=== PATIENT | male | born 1955 | race Caucasian/White ===

== ENCOUNTER 2020-09-04 09:19 | Inpatient (IN) ==
[2020-09-04] MEDS ORDERED: 0.9 % Sodium Chloride 1,000 ML IVC ONE ×2 (09:50→10:00)
[2020-09-04 10:26] LABS: Hematocrit 46.4 % (37.5-50.1); Hemoglobin 15.9 g/dL (12.9-16.9); Immature Platelets 3.2 % (1.1-6.1); Mean Corpuscular HGB Conc 34.3 g/dL (31.6-35.5); Mean Corpuscular Hemoglobin 37.1 pg (28.0-33.3); Mean Corpuscular Volume 108.2 fL (83.0-100.0); Mean Platelet Volume 9.4 fL (9.4-12.4); Platelet Count 122 K/mcL (140-400); Red Blood Count 4.29 M/mcL (4.19-5.50); Red Cell Distribution Width 13.2 % (11.5-14.5)
[2020-09-04 10:36] LABS: INR 1.2; Prothrombin Time 13.8 Seconds (9.4-12.1)
[2020-09-04] MEDS ORDERED: 0.9 % Sodium Chloride 500 ML IVC ONE ×2 (10:44→16:22)
[2020-09-04 10:48] LABS: Bacteria,Urine Few per hpf (None-Few); Bilirubin,Urine Negative (Negative); Blood,Urine Negative (Negative); Clarity,Urine Turbid (Clear); Color,Urine Yellow (Yellow); Glucose,Urine (UA) Normal (Normal); Ketones,Urine Negative (Negative); Leukocyte Esterase,Urine Moderate (Negative); Mucus,Urine Few per lpf (None-Few); Nitrite,Urine Positive (Negative); Protein,Urine Trace mg/dL (Neg-Trace); RBC,Urine 0-3 per hpf (0-3); Specific Gravity,Urine 1.015 (1.010-1.025); Squamous Epithelial Cell,Urine Few per hpf (None-Few)
[2020-09-04 10:55] LABS: Alanine Aminotransferase 23 Units/L (7-52); Albumin/Globulin Ratio 1.3 (1.1-2.2); Alkaline Phosphatase 77 Units/L (34-104); Aspartate Amino Transferase 28 Units/L (13-39); BUN/Creatinine Ratio 9 (6-26); Bilirubin,Direct 0.5 mg/dL (0.0-0.2); Bilirubin,Total 1.5 mg/dL (0.3-1.0); Blood Urea Nitrogen 9 mg/dL (8-23); Calcium 9.3 mg/dL (8.6-10.3); Carbon Dioxide 26 mEq/L (23-29); Chloride 101 mEq/L (98-107); Ethanol < 10 mg/dL (Less than 10); Glucose 92 mg/dL (70-105); Lipase 24 Units/L (11-82); Osmolality,Calculated 282 (280-300); Potassium 3.8 mEq/L (3.5-5.1); Sodium 137 mEq/L (136-145); Troponin I 0.03 ng/mL (< 0.04); eGFR For African Americans > 60 (> 60); eGFR For Non-African Americans > 60 (> 60)
[2020-09-04 11:39] LABS: Basophils # 0.1 K/mcL (0.0-0.2); Lymphocytes # 0.4 K/mcL (0.6-4.6); Monocytes # 0.2 K/mcL (0.0-1.3); Neutrophils # 3.4 K/mcL (1.6-8.9); Platelet Estimate Slight Decrease (Normal)
[2020-09-04] MEDS ORDERED: Piperacillin/Tazobactam 3.375 GM in 0.9 % Sodium Chloride Mini Bag 100 ML IVPB ONE (11:59)
[2020-09-04] MEDS ORDERED: Vancomycin 1,500 MG/265 ML IV.SOLN IVPB ONE (12:02)
[2020-09-04] MEDS ORDERED: Naloxone 0.4 MG/ML INJ IVP PRN (12:07)
[2020-09-04] MEDS ORDERED: *HR* LORazepam 2 MG/ML VIAL IVP PRN ×3 (12:08)
[2020-09-04] MEDS ORDERED: 0.9 % Sodium Chloride 1,000 ML IVC SCH (12:15)
[2020-09-04 12:53] LABS: Adenovirus Not Detected (Not Detect); Bordetella Pertussis Not Detected (Not Detect); Chlamydophila pneumoniae Not Detected (Not Detect); Coronavirus 229E Not Detected (Not Detect); Coronavirus HKU1 Not Detected (Not Detect); Coronavirus NL63 Not Detected (Not Detect); Coronavirus OC43 Not Detected (Not Detect); Human Metapneumovirus Not Detected (Not Detect); Human Rhinovirus/Enterovirus Not Detected (Not Detect); Influenza A Subtype 2009 H1 Not Detected (Not Detect); Influenza B Not Detected (Not Detect); Mycoplasma pneumoniae Not Detected (Not Detect); Parainfluenza Virus 1 Not Detected (Not Detect); Parainfluenza Virus 2 Not Detected (Not Detect); Parainfluenza Virus 3 Not Detected (Not Detect); Parainfluenza Virus 4 Not Detected (Not Detect); Respiratory Syncytial Virus Not Detected (Not Detect); SARS-CoV-2 Not Detected (Not Detect)
[2020-09-04] MEDS ORDERED: Perflutren Lipid Microsphere 1.3 ML in 0.9 % Sodium Chloride 8.7 ML IVP PRN (13:11)
[2020-09-04] MEDS: Folic Acid 1 MG TABLET PO SCH (13:23)
[2020-09-04] MEDS: Thiamine (B-1) 100 MG TABLET PO SCH (13:23)
[2020-09-04 13:37] LABS: Amphetamine Screen,Urine Negative ng/mL (Cutoff=1000); Barbiturate Screen,Urine Negative ng/mL (Cutoff=200); Benzodiazepines Screen,Urine Negative ng/mL (Cutoff=200); Cannabinoid Screen,Urine Negative ng/mL (Cutoff = 50); Cocaine Screen,Urine Negative ng/mL (Cutoff= 300); Opiate Screen,Urine Negative ng/mL (Cutoff=300); Phencyclidine Screen,Urine Negative ng/mL (Cutoff=25)
[2020-09-04] MEDS: Aspirin 81 MG TAB.CHEW PO SCH (13:50)
[2020-09-04 14:14] LABS: Estimated Average Glucose 105 mg/dl; Hemoglobin A1C 5.3 %
[2020-09-04] MEDS: *HR* Heparin 5,000 UNIT/ML VIAL SQ SCH (18:10)
[2020-09-04] MEDS: 0.9 % Sodium Chloride 1,000 ML IVC SCH (18:17)
[2020-09-04] MEDS: Piperacillin/Tazobactam 3.375 GM in 0.9 % Sodium Chloride Mini Bag 100 ML IVPB SCH (21:55)
[2020-09-05 03:54] LABS: Immature Granulocytes % 0.3 % (0-4)
[2020-09-05 03:56] LABS: Basophils % 0.4 %; Eosinophils # 0.1 K/mcL (0.0-0.6); Hematocrit 38.6 % (37.5-50.1); Hemoglobin 12.9 g/dL (12.9-16.9); Immature Platelets 3.5 % (1.1-6.1); Lymphocytes # 1.1 K/mcL (0.6-4.6); Lymphocytes % 15.9 %; Mean Corpuscular HGB Conc 33.4 g/dL (31.6-35.5); Mean Corpuscular Hemoglobin 37.1 pg (28.0-33.3); Mean Corpuscular Volume 110.9 fL (83.0-100.0); Mean Platelet Volume 10.1 fL (9.4-12.4); Monocytes # 0.8 K/mcL (0.0-1.3); Monocytes % 11.5 %; Neutrophils # 4.8 K/mcL (1.6-8.9); Red Blood Count 3.48 M/mcL (4.19-5.50); Red Cell Distribution Width 13.5 % (11.5-14.5); Segmented Neutrophils % 70.9 %; White Blood Count 6.8 K/mcL (4.3-11.1)
[2020-09-05 04:10] LABS: Platelet Count 97 K/mcL (140-400)
[2020-09-05] MEDS: Piperacillin/Tazobactam 3.375 GM in 0.9 % Sodium Chloride Mini Bag 100 ML IVPB SCH ×3 (04:17→20:24)
[2020-09-05] MEDS: *HR* Heparin 5,000 UNIT/ML VIAL SQ SCH ×2 (04:18→17:52)
[2020-09-05 04:19] LABS: % Iron Saturation 34 % (20-55); Alanine Aminotransferase 20 Units/L (7-52); Albumin 3.1 g/dL (3.5-5.7); Albumin/Globulin Ratio 1.3 (1.1-2.2); Alkaline Phosphatase 43 Units/L (34-104); Aspartate Amino Transferase 25 Units/L (13-39); BUN/Creatinine Ratio 13 (6-26); Bilirubin,Total 1.1 mg/dL (0.3-1.0); Blood Urea Nitrogen 11 mg/dL (8-23); Calcium 7.8 mg/dL (8.6-10.3); Carbon Dioxide 22 mEq/L (23-29); Chloride 108 mEq/L (98-107); Chol/HDL Ratio 2.1 (0-4.9); Cholesterol 101 mg/dL (< 200); Globulin 2.3 g/dL (2.4-3.5); Glucose 93 mg/dL (70-105); HDL Cholesterol 48 mg/dL (40-59); Iron 87 mcg/dL (65-175); LDL Cholesterol,Calculated 43 mg/dL (< 100); Osmolality,Calculated 283 (280-300); Potassium 3.8 mEq/L (3.5-5.1); Sodium 137 mEq/L (136-145); Total Protein 5.4 g/dL (6.4-8.9); Transferrin 181 mg/dL (203-362); Triglycerides 52 mg/dL (< 150); eGFR For African Americans > 60 (> 60); eGFR For Non-African Americans > 60 (> 60)
[2020-09-05 04:28] LABS: Thyroid Stimulating Hormone 1.128 mcIU/mL (0.340-5.600)
[2020-09-05 04:31] LABS: Platelet Estimate Slight Decrease (Normal)
[2020-09-05 04:32] LABS: Macrocytosis Present (Not Present); Reactive Lymphocytes Present (Not Present)
[2020-09-05 04:34] LABS: Ferritin 577 ng/mL (20-250)
[2020-09-05 04:38] LABS: Folate 5.9 ng/mL (3.0-16.0)
[2020-09-05] MEDS ORDERED: Isovue-370 500 ML BOTTLE IVP ONE (07:52)
[2020-09-05] MEDS: Folic Acid 1 MG TABLET PO SCH (09:12)
[2020-09-05] MEDS: Thiamine (B-1) 100 MG TABLET PO SCH (09:12)
[2020-09-05] MEDS: Aspirin 81 MG TAB.CHEW PO SCH (09:12)
[2020-09-05] MEDS: 0.9 % Sodium Chloride 1,000 ML IVC SCH (11:42)
[2020-09-05] MEDS ORDERED: Gadolinium Contrast Agent (WT Based) IV PRN (15:26)
[2020-09-05] MEDS ORDERED: Cyanocobalamin (B-12) 1,000 MCG/ML VIAL IM ONE (16:37)
[2020-09-05] MEDS ORDERED: Gabapentin 300 MG CAPSULE PO SCH (21:00)
[2020-09-06] MEDS: Piperacillin/Tazobactam 3.375 GM in 0.9 % Sodium Chloride Mini Bag 100 ML IVPB SCH (04:17)
[2020-09-06] MEDS: *HR* Heparin 5,000 UNIT/ML VIAL SQ SCH (05:10)
[2020-09-06] MEDS: Aspirin 81 MG TAB.CHEW PO SCH (07:27)
[2020-09-06] MEDS: Folic Acid 1 MG TABLET PO SCH (07:27)
[2020-09-06] MEDS: Thiamine (B-1) 100 MG TABLET PO SCH (07:27)
[2020-09-06 10:30] VITALS: BP 116/67
== END 2020-09-06 12:02 | disposition home or self-care (01) | DRG 872 ==
LOC: 3ANU 09:19 → EMEROOARM 09:19 → SUATTDRO 11:45 → 3ANU 12:45
PROVIDERS: ADMIT Student in an Organized Health Care Education/Training Program; ATTEND Internal Medicine

== ENCOUNTER 2020-10-19 11:19 | Inpatient (IN) ==
[2020-10-19 12:01] LABS: Hemoglobin 16.4 g/dL (12.9-16.9); Mean Corpuscular Hemoglobin 36.4 pg (28.0-33.3); Red Blood Count 4.51 M/mcL (4.19-5.50); Red Cell Distribution Width 11.9 % (11.5-14.5)
[2020-10-19 12:03] LABS: Basophils # 0.1 K/mcL (0.0-0.2); Basophils % 1.1 %; Eosinophils % 0.5 %; Hematocrit 47.1 % (37.5-50.1); Immature Granulocytes % 0.4 % (0-4); Immature Platelets 4.6 % (1.1-6.1); Lymphocytes # 1.5 K/mcL (0.6-4.6); Lymphocytes % 26.5 %; Mean Corpuscular HGB Conc 34.8 g/dL (31.6-35.5); Mean Corpuscular Volume 104.4 fL (83.0-100.0); Mean Platelet Volume 9.7 fL (9.4-12.4); Monocytes # 0.6 K/mcL (0.0-1.3); Monocytes % 10.9 %; Neutrophils # 3.5 K/mcL (1.6-8.9); Platelet Count 131 K/mcL (140-400); Segmented Neutrophils % 60.6 %; White Blood Count 5.7 K/mcL (4.3-11.1)
[2020-10-19 12:16] LABS: INR 1.1; Prothrombin Time 12.8 Seconds (9.4-12.1)
[2020-10-19 12:18] LABS: Activated Partial Thrombo Time 28.4 Seconds (26.0-36.0)
[2020-10-19] MEDS: DilTIAZem 50 MG/50 ML IV.SOLN IVC SCH (12:19)
[2020-10-19 12:23] LABS: Alanine Aminotransferase 18 Units/L (7-52); Albumin 4.2 g/dL (3.5-5.7); Albumin/Globulin Ratio 1.3 (1.1-2.2); Alkaline Phosphatase 67 Units/L (34-104); Aspartate Amino Transferase 23 Units/L (13-39); BUN/Creatinine Ratio 10 (6-26); Bilirubin,Direct 0.2 mg/dL (0.0-0.2); Bilirubin,Indirect 0.8 mg/dL (0.0-1.0); Blood Urea Nitrogen 9 mg/dL (8-23); Calcium 9.4 mg/dL (8.6-10.3); Carbon Dioxide 27 mEq/L (23-29); Chloride 101 mEq/L (98-107); Globulin 3.2 g/dL (2.4-3.5); Glucose 116 mg/dL (70-105); Osmolality,Calculated 288 (280-300); Potassium 4.1 mEq/L (3.5-5.1); Sodium 139 mEq/L (136-145); Total Protein 7.4 g/dL (6.4-8.9); Troponin I < 0.03 ng/mL (< 0.04); eGFR For African Americans > 60 (> 60); eGFR For Non-African Americans > 60 (> 60)
[2020-10-19] MEDS ORDERED: Naloxone 0.4 MG/ML INJ IVP PRN (16:26)
[2020-10-19] MEDS ORDERED: Ondansetron 4 MG/2 ML VIAL IVP PRN (16:42)
[2020-10-19] MEDS ORDERED: Perflutren Lipid Microsphere 1.3 ML in 0.9 % Sodium Chloride 8.7 ML IVP PRN (16:49)
[2020-10-19] MEDS: Metoprolol XL (24 HR) Succ 50 MG TAB.ER.24H PO SCH (17:27)
[2020-10-19] MEDS ORDERED: *HR* LORazepam 2 MG/ML VIAL IVP PRN ×2 (17:33)
[2020-10-19] MEDS ORDERED: Gadolinium Contrast Agent (WT Based) IV PRN (17:36)
[2020-10-19] MEDS: *HR* Heparin 5,000 UNIT/ML VIAL SQ SCH (18:03)
[2020-10-19 18:24] LABS: Troponin I < 0.03 ng/mL (< 0.04)
[2020-10-19 18:37] LABS: Thyroid Stimulating Hormone 0.425 mcIU/mL (0.340-5.600)
[2020-10-20] MEDS: *HR* Heparin 5,000 UNIT/ML VIAL SQ SCH (04:51)
[2020-10-20] MEDS ORDERED: Regadenoson 0.4 MG/5 ML SYRINGE IVP ONE (06:23)
[2020-10-20 07:05] LABS: Basophils % 0.9 %; Eosinophils # 0.1 K/mcL (0.0-0.6); Eosinophils % 2.9 %; Hematocrit 44.3 % (37.5-50.1); Hemoglobin 15.3 g/dL (12.9-16.9); Lymphocytes # 1.8 K/mcL (0.6-4.6); Lymphocytes % 39.5 %; Mean Corpuscular HGB Conc 34.5 g/dL (31.6-35.5); Mean Corpuscular Hemoglobin 36.5 pg (28.0-33.3); Mean Corpuscular Volume 105.7 fL (83.0-100.0); Mean Platelet Volume 10.1 fL (9.4-12.4); Monocytes # 0.5 K/mcL (0.0-1.3); Monocytes % 11.8 %; Neutrophils # 2.1 K/mcL (1.6-8.9); Platelet Count 104 K/mcL (140-400); Red Blood Count 4.19 M/mcL (4.19-5.50); Red Cell Distribution Width 11.7 % (11.5-14.5); Segmented Neutrophils % 44.9 %; White Blood Count 4.6 K/mcL (4.3-11.1)
[2020-10-20 07:21] LABS: BUN/Creatinine Ratio 12 (6-26); Blood Urea Nitrogen 11 mg/dL (8-23); Calcium 8.9 mg/dL (8.6-10.3); Carbon Dioxide 26 mEq/L (23-29); Chloride 102 mEq/L (98-107); Glucose 104 mg/dL (70-105); Osmolality,Calculated 284 (280-300); Phosphorous 3.4 mg/dL (2.7-4.5); Potassium 3.9 mEq/L (3.5-5.1); Sodium 137 mEq/L (136-145); eGFR For African Americans > 60 (> 60); eGFR For Non-African Americans > 60 (> 60)
[2020-10-20] MEDS: Thiamine (B-1) 100 MG TABLET PO SCH (09:14)
[2020-10-20] MEDS: Metoprolol XL (24 HR) Succ 50 MG TAB.ER.24H PO SCH ×2 (09:14→20:15)
[2020-10-20] MEDS: Vitamin B Complex/Vit C/Vit E 1 EACH TABLET PO SCH (09:14)
[2020-10-20] MEDS: Folic Acid 1 MG TABLET PO SCH (09:14)
[2020-10-20] MEDS: Aspirin 81 MG TAB.CHEW PO SCH (09:14)
[2020-10-20] MEDS: DilTIAZem 50 MG/50 ML IV.SOLN IVC SCH (10:41)
[2020-10-20] MEDS ORDERED: *HR* LORazepam 2 MG/ML VIAL IVP ONE (12:59)
[2020-10-20] MEDS ORDERED: *HR* Heparin 5,000 UNIT/ML VIAL IVP PRN ×2 (13:01)
[2020-10-20] MEDS ORDERED: *HR* Heparin 5,000 UNIT/ML VIAL IVP ONE (13:01)
[2020-10-20] MEDS: lisinopriL 5 MG TABLET PO SCH (14:24)
[2020-10-20] MEDS: Heparin 25,000UNIT/250ML 1/2NS 25,000 UNIT/250 ML IV.SOLN IVC SCH (14:25)
[2020-10-20 14:32] LABS: Mean Corpuscular Volume 105.6 fL (83.0-100.0); White Blood Count 4.3 K/mcL (4.3-11.1)
[2020-10-20 14:34] LABS: Hematocrit 46.8 % (37.5-50.1); Hemoglobin 16.2 g/dL (12.9-16.9); Immature Platelets 3.9 % (1.1-6.1); Mean Corpuscular HGB Conc 34.6 g/dL (31.6-35.5); Mean Corpuscular Hemoglobin 36.6 pg (28.0-33.3); Mean Platelet Volume 9.7 fL (9.4-12.4); Red Blood Count 4.43 M/mcL (4.19-5.50); Red Cell Distribution Width 11.9 % (11.5-14.5)
[2020-10-20 16:01] LABS: Heparin anti-factor XA UFH < 0.04 IU/mL (0.30-0.70)
[2020-10-20 16:02] LABS: INR 1.1; Prothrombin Time 12.8 Seconds (9.4-12.1)
[2020-10-20] MEDS: *HR* LORazepam 2 MG/ML VIAL IVP PRN (23:25)
[2020-10-21 06:07] LABS: Hematocrit 42.1 % (37.5-50.1); Hemoglobin 14.5 g/dL (12.9-16.9); Immature Platelets 3.6 % (1.1-6.1); Mean Corpuscular HGB Conc 34.4 g/dL (31.6-35.5); Mean Corpuscular Hemoglobin 36.2 pg (28.0-33.3); Red Blood Count 4.01 M/mcL (4.19-5.50); Red Cell Distribution Width 11.6 % (11.5-14.5); White Blood Count 4.2 K/mcL (4.3-11.1)
[2020-10-21] MEDS: Metoprolol XL (24 HR) Succ 50 MG TAB.ER.24H PO SCH ×3 (08:31→20:06)
[2020-10-21] MEDS: lisinopriL 5 MG TABLET PO SCH (08:40)
[2020-10-21] MEDS: Aspirin 81 MG TAB.CHEW PO SCH (08:45)
[2020-10-21] MEDS: Thiamine (B-1) 100 MG TABLET PO SCH (08:45)
[2020-10-21] MEDS: Vitamin B Complex/Vit C/Vit E 1 EACH TABLET PO SCH (08:45)
[2020-10-21] MEDS: Folic Acid 1 MG TABLET PO SCH (08:45)
[2020-10-21] MEDS ORDERED: Spironolactone 25 MG TABLET PO SCH (10:00)
[2020-10-21] MEDS: *HR* LORazepam 2 MG/ML VIAL IVP PRN (10:45)
[2020-10-21] MEDS: Nicotine 21 MG PATCH.TD24 TD SCH (11:05)
[2020-10-21] MEDS: Heparin 25,000UNIT/250ML 1/2NS 25,000 UNIT/250 ML IV.SOLN IVC SCH (15:51)
[2020-10-21 18:59] LABS: Bacteria,Urine Few per hpf (None-Few); Bilirubin,Urine Negative (Negative); Blood,Urine Negative (Negative); Clarity,Urine Turbid (Clear); Color,Urine Light-Yellow (Yellow); Glucose,Urine (UA) Normal (Normal); Ketones,Urine Negative (Negative); Leukocyte Esterase,Urine Large (Negative); Nitrite,Urine Negative (Negative); Protein,Urine Negative (Neg-Trace); Specific Gravity,Urine 1.011 (1.010-1.025); Squamous Epithelial Cell,Urine Few per hpf (None-Few); Urobilinogen,Urine Normal (Normal); WBC,Urine TNTC per hpf (0-3)
[2020-10-22 06:20] LABS: Mean Corpuscular HGB Conc 34.4 g/dL (31.6-35.5)
[2020-10-22 06:21] LABS: Hematocrit 43.3 % (37.5-50.1); Hemoglobin 14.9 g/dL (12.9-16.9); Immature Platelets 3.2 % (1.1-6.1); Mean Corpuscular Volume 104.6 fL (83.0-100.0); Mean Platelet Volume 9.3 fL (9.4-12.4); Red Blood Count 4.14 M/mcL (4.19-5.50); Red Cell Distribution Width 11.7 % (11.5-14.5); White Blood Count 3.8 K/mcL (4.3-11.1)
[2020-10-22 06:34] LABS: Alanine Aminotransferase 12 Units/L (7-52); Albumin 3.6 g/dL (3.5-5.7); Albumin/Globulin Ratio 1.3 (1.1-2.2); Alkaline Phosphatase 57 Units/L (34-104); Aspartate Amino Transferase 18 Units/L (13-39); BUN/Creatinine Ratio 19 (6-26); Bilirubin,Total 0.9 mg/dL (0.3-1.0); Blood Urea Nitrogen 14 mg/dL (8-23); Calcium 8.6 mg/dL (8.6-10.3); Carbon Dioxide 24 mEq/L (23-29); Chloride 106 mEq/L (98-107); Globulin 2.7 g/dL (2.4-3.5); Glucose 105 mg/dL (70-105); Osmolality,Calculated 283 (280-300); Potassium 4.1 mEq/L (3.5-5.1); Sodium 136 mEq/L (136-145); Total Protein 6.3 g/dL (6.4-8.9); eGFR For African Americans > 60 (> 60); eGFR For Non-African Americans > 60 (> 60)
[2020-10-22] MEDS: lisinopriL 5 MG TABLET PO SCH (08:01)
[2020-10-22] MEDS: Aspirin 81 MG TAB.CHEW PO SCH (08:09)
[2020-10-22] MEDS: Thiamine (B-1) 100 MG TABLET PO SCH (08:09)
[2020-10-22] MEDS: Vitamin B Complex/Vit C/Vit E 1 EACH TABLET PO SCH (08:09)
[2020-10-22] MEDS: Folic Acid 1 MG TABLET PO SCH (08:09)
[2020-10-22] MEDS: Metoprolol XL (24 HR) Succ 50 MG TAB.ER.24H PO SCH ×2 (08:09→21:29)
[2020-10-22] MEDS: Nicotine 21 MG PATCH.TD24 TD SCH (08:12)
[2020-10-22] MEDS: Spironolactone 25 MG TABLET PO SCH (11:20)
[2020-10-22] MEDS ORDERED: cefTRIAXone 1,000 MG in 0.9 % Sodium Chloride Mini Bag 100 ML IVPB SCH (18:00)
[2020-10-22] MEDS: Heparin 25,000UNIT/250ML 1/2NS 25,000 UNIT/250 ML IV.SOLN IVC SCH (18:10)
[2020-10-23 03:05] LABS: Hematocrit 42.8 % (37.5-50.1); Hemoglobin 14.7 g/dL (12.9-16.9); Immature Platelets 4.5 % (1.1-6.1); Mean Corpuscular HGB Conc 34.3 g/dL (31.6-35.5); Mean Corpuscular Hemoglobin 35.9 pg (28.0-33.3); Mean Corpuscular Volume 104.6 fL (83.0-100.0); Mean Platelet Volume 10.2 fL (9.4-12.4); Red Blood Count 4.09 M/mcL (4.19-5.50); Red Cell Distribution Width 11.8 % (11.5-14.5); White Blood Count 4.5 K/mcL (4.3-11.1)
[2020-10-23 03:22] LABS: Alanine Aminotransferase 14 Units/L (7-52); Albumin 3.6 g/dL (3.5-5.7); Albumin/Globulin Ratio 1.3 (1.1-2.2); Alkaline Phosphatase 56 Units/L (34-104); Aspartate Amino Transferase 17 Units/L (13-39); BUN/Creatinine Ratio 19 (6-26); Bilirubin,Total 0.8 mg/dL (0.3-1.0); Blood Urea Nitrogen 15 mg/dL (8-23); Calcium 8.7 mg/dL (8.6-10.3); Carbon Dioxide 25 mEq/L (23-29); Chloride 105 mEq/L (98-107); Globulin 2.8 g/dL (2.4-3.5); Glucose 98 mg/dL (70-105); Osmolality,Calculated 283 (280-300); Potassium 3.9 mEq/L (3.5-5.1); Sodium 136 mEq/L (136-145); Total Protein 6.4 g/dL (6.4-8.9); eGFR For African Americans > 60 (> 60); eGFR For Non-African Americans > 60 (> 60)
[2020-10-23] MEDS: lisinopriL 5 MG TABLET PO SCH (07:18)
[2020-10-23] MEDS: Metoprolol XL (24 HR) Succ 50 MG TAB.ER.24H PO SCH (07:36)
[2020-10-23] MEDS: Aspirin 81 MG TAB.CHEW PO SCH (07:36)
[2020-10-23] MEDS: Folic Acid 1 MG TABLET PO SCH (07:37)
[2020-10-23] MEDS: Nicotine 21 MG PATCH.TD24 TD SCH (07:37)
[2020-10-23] MEDS: Thiamine (B-1) 100 MG TABLET PO SCH (07:37)
[2020-10-23] MEDS: Spironolactone 25 MG TABLET PO SCH (07:37)
[2020-10-23] MEDS: Vitamin B Complex/Vit C/Vit E 1 EACH TABLET PO SCH (07:51)
[2020-10-23] MEDS ORDERED: *HR* Heparin 10,000 UNIT/10 ML VIAL ONE (11:58)
[2020-10-23] MEDS ORDERED: Heparin 1,000 UNITS/500 mL 500 ML ONE (11:58)
[2020-10-23] MEDS ORDERED: 0.9 % Sodium Chloride 2,000 ML ONE (11:58)
[2020-10-23] MEDS ORDERED: ISOVUE-370 200 ML INFUS..BTL ONE (11:58)
[2020-10-23] MEDS ORDERED: Nitroglycerin 1,000 MCG/5 ML VIAL IV ONE (11:58)
[2020-10-23] MEDS ORDERED: *HR* Midazolam HCl 2 MG/2 ML VIAL ONE (14:24)
[2020-10-23] MEDS ORDERED: *HR* FentaNYL (PF) 100 MCG/2 ML VIAL ONE (14:25)
[2020-10-23] MEDS: Heparin 25,000UNIT/250ML 1/2NS 25,000 UNIT/250 ML IV.SOLN IVC SCH (15:49)
[2020-10-23 16:51] VITALS: BP 110/76
[2020-10-23] MEDS ORDERED: Apixaban 5 MG TABLET PO SCH (21:00)
== END 2020-10-23 17:20 | disposition home or self-care (01) | DRG 286 ==
LOC: EMEROOARM 11:19 → 3BNU 11:19 → SUATTDRO 14:49 → 3BNU 17:02
PROVIDERS: ADMIT Family Medicine; ATTEND Registered Nurse

== ENCOUNTER 2021-03-18 17:13 | Inpatient (IN) ==
[2021-03-18] MEDS ORDERED: Aspirin 81 MG TAB.CHEW PO ONE (17:29)
[2021-03-18] MEDS ORDERED: 0.9 % Sodium Chloride 500 ML IVC ONE (17:29)
[2021-03-18 17:45] LABS: Bilirubin,Urine Negative (Negative); Blood,Urine Negative (Negative); Clarity,Urine Clear (Clear); Color,Urine Colorless (Yellow); Glucose,Urine (UA) Normal (Normal); Ketones,Urine Negative (Negative); Leukocyte Esterase,Urine Negative (Negative); Nitrite,Urine Negative (Negative); PH,Urine 6.5 pH Units (5.0-8.0); Protein,Urine Negative (Neg-Trace); Specific Gravity,Urine 1.005 (1.010-1.025); Urobilinogen,Urine Normal (Normal)
[2021-03-18 17:59] LABS: Basophils % 0.4 %; Eosinophils # 0.2 K/mcL (0.0-0.6); Eosinophils % 3.1 %; Hematocrit 40.3 % (37.5-50.1); Hemoglobin 14.1 g/dL (12.9-16.9); Immature Granulocytes % 0.2 % (0-4); Immature Platelets 4.6 % (1.1-6.1); Lymphocytes # 1.9 K/mcL (0.6-4.6); Lymphocytes % 35.1 %; Mean Corpuscular Hemoglobin 35.7 pg (28.0-33.3); Monocytes # 0.7 K/mcL (0.0-1.3); Monocytes % 13.2 %; Neutrophils # 2.7 K/mcL (1.6-8.9); Platelet Count 131 K/mcL (140-400); Red Blood Count 3.95 M/mcL (4.19-5.50); Red Cell Distribution Width 11.2 % (11.5-14.5); White Blood Count 5.5 K/mcL (4.3-11.1)
[2021-03-18 18:05] LABS: INR 1.3
[2021-03-18 18:08] LABS: Activated Partial Thrombo Time 28.4 Seconds (26.0-36.0)
[2021-03-18 18:20] LABS: Alanine Aminotransferase 17 Units/L (7-52); Albumin/Globulin Ratio 1.5 (1.1-2.2); Alkaline Phosphatase 78 Units/L (34-104); Aspartate Amino Transferase 21 Units/L (13-39); BUN/Creatinine Ratio 15 (6-26); Bilirubin,Direct 0.2 mg/dL (0.0-0.2); Bilirubin,Indirect 0.9 mg/dL (0.0-1.0); Bilirubin,Total 1.1 mg/dL (0.3-1.0); Blood Urea Nitrogen 13 mg/dL (8-23); Calcium 9.3 mg/dL (8.6-10.3); Carbon Dioxide 26 mEq/L (23-29); Chloride 99 mEq/L (98-107); Globulin 2.6 g/dL (2.4-3.5); Glucose 98 mg/dL (70-105); Osmolality,Calculated 278 (280-300); Potassium 3.8 mEq/L (3.5-5.1); Sodium 134 mEq/L (136-145); Total Protein 6.6 g/dL (6.4-8.9); Troponin I < 0.03 ng/mL (< 0.04); eGFR For African Americans > 60 (> 60); eGFR For Non-African Americans > 60 (> 60)
[2021-03-18 18:54] LABS: Lipase 22 Units/L (11-82)
[2021-03-19 01:15] LABS: Ethanol < 10 mg/dL (Less than 10); Troponin I < 0.03 ng/mL (< 0.04)
[2021-03-19 01:30] LABS: Amphetamine Screen,Urine Negative ng/mL (Cutoff=1000); Barbiturate Screen,Urine Negative ng/mL (Cutoff=200); Benzodiazepines Screen,Urine Negative ng/mL (Cutoff=200); Cannabinoid Screen,Urine Negative ng/mL (Cutoff = 50); Cocaine Screen,Urine Negative ng/mL (Cutoff= 300); Opiate Screen,Urine Negative ng/mL (Cutoff=300); Phencyclidine Screen,Urine Negative ng/mL (Cutoff=25)
[2021-03-19] MEDS ORDERED: Ondansetron 4 MG/2 ML VIAL IVP PRN (02:51)
[2021-03-19] MEDS ORDERED: Acetaminophen 325 MG TABLET PO PRN (02:51)
[2021-03-19] MEDS ORDERED: Naloxone 0.4 MG/ML INJ IVP PRN (02:51)
[2021-03-19 05:41] LABS: Red Cell Distribution Width 11.2 % (11.5-14.5); White Blood Count 4.1 K/mcL (4.3-11.1)
[2021-03-19 05:42] LABS: Hematocrit 42.3 % (37.5-50.1); Hemoglobin 14.6 g/dL (12.9-16.9); Immature Platelets 11.9 % (1.1-6.1); Mean Corpuscular HGB Conc 34.5 g/dL (31.6-35.5); Mean Corpuscular Hemoglobin 35.4 pg (28.0-33.3); Mean Corpuscular Volume 102.4 fL (83.0-100.0); Mean Platelet Volume 11.1 fL (9.4-12.4); Red Blood Count 4.13 M/mcL (4.19-5.50)
[2021-03-19 05:55] LABS: BUN/Creatinine Ratio 17 (6-26); Blood Urea Nitrogen 12 mg/dL (8-23); Calcium 9.1 mg/dL (8.6-10.3); Carbon Dioxide 26 mEq/L (23-29); Chloride 106 mEq/L (98-107); Chol/HDL Ratio 2.4 (0-4.9); Cholesterol 111 mg/dL (< 200); Glucose 84 mg/dL (70-105); HDL Cholesterol 47 mg/dL (40-59); LDL Cholesterol,Calculated 52 mg/dL (< 100); Osmolality,Calculated 289 (280-300); Potassium 3.8 mEq/L (3.5-5.1); Sodium 140 mEq/L (136-145); Triglycerides 59 mg/dL (< 150); eGFR For African Americans > 60 (> 60); eGFR For Non-African Americans > 60 (> 60)
[2021-03-19 05:59] LABS: INR 1.3; Prothrombin Time 14.4 Seconds (9.4-12.1)
[2021-03-19] MEDS: Aspirin Enteric Coated 81 MG Tablet PO SCH (09:43)
[2021-03-19] MEDS ORDERED: *HR* LORazepam 2 MG/ML VIAL IVP ONE (11:45)
[2021-03-19] MEDS: Apixaban 5 MG TABLET PO SCH (21:15)
[2021-03-19] MEDS: Metoprolol XL (24 HR) Succ 50 MG TAB.ER.24H PO SCH (21:16)
[2021-03-20 06:01] LABS: Hemoglobin 13.9 g/dL (12.9-16.9)
[2021-03-20 06:02] LABS: Hematocrit 40.8 % (37.5-50.1); Immature Platelets 4.5 % (1.1-6.1); Mean Corpuscular HGB Conc 34.1 g/dL (31.6-35.5); Mean Corpuscular Hemoglobin 35.1 pg (28.0-33.3); Mean Platelet Volume 10.2 fL (9.4-12.4); Red Blood Count 3.96 M/mcL (4.19-5.50); Red Cell Distribution Width 11.2 % (11.5-14.5); White Blood Count 7.1 K/mcL (4.3-11.1)
[2021-03-20 06:20] LABS: BUN/Creatinine Ratio 19 (6-26); Blood Urea Nitrogen 15 mg/dL (8-23); Calcium 8.9 mg/dL (8.6-10.3); Carbon Dioxide 25 mEq/L (23-29); Chloride 107 mEq/L (98-107); Glucose 92 mg/dL (70-105); Osmolality,Calculated 288 (280-300); Potassium 3.6 mEq/L (3.5-5.1); Sodium 139 mEq/L (136-145); eGFR For African Americans > 60 (> 60); eGFR For Non-African Americans > 60 (> 60)
[2021-03-20] MEDS ORDERED: Aspirin 81 MG TAB.CHEW PO SCH (09:00)
[2021-03-20] MEDS: lisinopriL 5 MG TABLET PO SCH (09:30)
[2021-03-20] MEDS: Spironolactone 12.5 MG TABLET PO SCH (09:30)
[2021-03-20] MEDS: Metoprolol XL (24 HR) Succ 50 MG TAB.ER.24H PO SCH ×2 (09:30→21:01)
[2021-03-20] MEDS: Aspirin Enteric Coated 81 MG Tablet PO SCH (09:31)
[2021-03-20] MEDS: Apixaban 5 MG TABLET PO SCH ×2 (09:31→21:01)
[2021-03-20] MEDS: Nicotine 21 MG PATCH.TD24 TD SCH (18:11)
[2021-03-21] MEDS: Nicotine 21 MG PATCH.TD24 TD SCH (08:30)
[2021-03-21] MEDS: Metoprolol XL (24 HR) Succ 50 MG TAB.ER.24H PO SCH ×2 (08:30→20:57)
[2021-03-21] MEDS: Aspirin Enteric Coated 81 MG Tablet PO SCH (08:35)
[2021-03-21] MEDS: lisinopriL 5 MG TABLET PO SCH (08:35)
[2021-03-21] MEDS: Spironolactone 12.5 MG TABLET PO SCH (08:35)
[2021-03-21] MEDS: Apixaban 5 MG TABLET PO SCH ×2 (08:36→20:57)
[2021-03-22] MEDS: Nicotine 21 MG PATCH.TD24 TD SCH (08:31)
[2021-03-22] MEDS: Metoprolol XL (24 HR) Succ 50 MG TAB.ER.24H PO SCH ×2 (08:33→20:39)
[2021-03-22] MEDS: Spironolactone 12.5 MG TABLET PO SCH (08:33)
[2021-03-22] MEDS: Apixaban 5 MG TABLET PO SCH ×2 (08:33→20:39)
[2021-03-22] MEDS: lisinopriL 5 MG TABLET PO SCH (08:33)
[2021-03-22] MEDS: Aspirin Enteric Coated 81 MG Tablet PO SCH (08:33)
[2021-03-23] MEDS: Metoprolol XL (24 HR) Succ 50 MG TAB.ER.24H PO SCH ×2 (08:26→19:41)
[2021-03-23] MEDS: Spironolactone 12.5 MG TABLET PO SCH (08:26)
[2021-03-23] MEDS: Apixaban 5 MG TABLET PO SCH ×2 (08:26→19:41)
[2021-03-23] MEDS: lisinopriL 5 MG TABLET PO SCH (08:26)
[2021-03-23] MEDS: Aspirin Enteric Coated 81 MG Tablet PO SCH (08:26)
[2021-03-23] MEDS: Nicotine 21 MG PATCH.TD24 TD SCH (08:27)
[2021-03-24] MEDS: lisinopriL 5 MG TABLET PO SCH (08:25)
[2021-03-24] MEDS: Apixaban 5 MG TABLET PO SCH ×2 (08:26→19:37)
[2021-03-24] MEDS: Metoprolol XL (24 HR) Succ 50 MG TAB.ER.24H PO SCH ×2 (08:26→19:37)
[2021-03-24] MEDS: Aspirin Enteric Coated 81 MG Tablet PO SCH (08:26)
[2021-03-24] MEDS: Spironolactone 12.5 MG TABLET PO SCH (08:26)
[2021-03-24] MEDS: Nicotine 21 MG PATCH.TD24 TD SCH (08:27)
[2021-03-25 07:16] VITALS: BP 135/78; PULSE 78; TEMP 97.7; O2SAT 100
[2021-03-25] MEDS: lisinopriL 5 MG TABLET PO SCH (09:07)
[2021-03-25] MEDS: Aspirin Enteric Coated 81 MG Tablet PO SCH (09:07)
[2021-03-25] MEDS: Spironolactone 12.5 MG TABLET PO SCH (09:07)
[2021-03-25] MEDS: Apixaban 5 MG TABLET PO SCH (09:07)
[2021-03-25] MEDS: Metoprolol XL (24 HR) Succ 50 MG TAB.ER.24H PO SCH (09:07)
[2021-03-25] MEDS: Nicotine 21 MG PATCH.TD24 TD SCH (09:19)
[2021-03-25 11:50] LABS: Adenovirus Not Detected (Not Detect); Bordetella Pertussis Not Detected (Not Detect); Chlamydophila pneumoniae Not Detected (Not Detect); Coronavirus 229E Not Detected (Not Detect); Coronavirus HKU1 Not Detected (Not Detect); Coronavirus NL63 Not Detected (Not Detect); Coronavirus OC43 Not Detected (Not Detect); Human Metapneumovirus Not Detected (Not Detect); Human Rhinovirus/Enterovirus Not Detected (Not Detect); Influenza A Subtype 2009 H1 Not Detected (Not Detect); Influenza B Not Detected (Not Detect); Mycoplasma pneumoniae Not Detected (Not Detect); Parainfluenza Virus 1 Not Detected (Not Detect); Parainfluenza Virus 2 Not Detected (Not Detect); Parainfluenza Virus 3 Not Detected (Not Detect); Parainfluenza Virus 4 Not Detected (Not Detect); Respiratory Syncytial Virus Not Detected (Not Detect); SARS-CoV-2 Not Detected (Not Detect)
== END 2021-03-25 16:59 | DRG 640 ==
LOC: 3NENU 17:13 → EMEROOARM 17:13 → SUATTDRO 22:17 → 3ANU 22:20 → SUATTDRO 03-20 16:31 → 3BNU 03-21 21:46
PROVIDERS: ADMIT Internal Medicine; ATTEND Registered Nurse